=== PATIENT | male | born 1940 | race American Indian/Alaskan Native ===

== ENCOUNTER 2022-05-29 23:54 | Emergency (ER) | payer OTHER ==
--- NOTE | 2022-05-30 01:04 | Emergency Department Report ---
ED General Adult HPI - General Chief complaint: Urogenital-Male Stated complaint: URINARY RETENTION PUI?: No Time Seen by Provider: 05/30/22 00:18 Source: EMS Mode of arrival: Stretcher Limitations: No Limitations - History of Present Illness Initial comments: 81-year-old male brought in by EMS with concerns of urinary retention. According to patient he is Sparks catheter was placed around today at 1:00. Ever since then patient denies any fluid coming out the Sparks catheter. Patient endorsed suprapubic discomfort. Patient denies any other symptoms. Patient denies fever chill night sweat dizziness blurred vision lightheadedness headache tinnitus ear pain runny nose sore throat loss of taste loss smell chest pain palpitation short breath cough abdominal pain nausea vomiting diarrhea constipation joint pain muscle pain new rash and heat or cold intolerance - Related Data Previous Rx's Medication Instructions Recorded Last Taken Type Ciprofloxacin HCl 500 mg PO Q12H 10 Days #20 05/30/22 Unknown Rx Allergies Allergy/AdvReac Type Severity Reaction Status Date / Time No Known Allergies Allergy Verified 05/09/19 16:03 ED Review of Systems ROS: Stated complaint: URINARY RETENTION Other details as noted in HPI Comment: All other systems reviewed and negative Constitutional: no symptoms reported, see HPI Eyes: as per HPI ENT: as per HPI Respiratory: no symptoms reported, see HPI Cardiovascular: as per HPI Endocrine: no symptoms reported, see HPI Gastrointestinal: as per HPI Genitourinary: as per HPI Musculoskeletal: as per HPI Skin: as per HPI Neurological: as per HPI Psychiatric: as per HPI Hematological/Lymphatic: as per HPI ED Past Medical Hx - Past Medical History Previous Medical History?: Yes Hx Hypertension: Yes (Controlled) Hx Diabetes: Yes (PO MEDS, NO INSULIN) - Surgical History Past Surgical History?: No - Social History Smoking Status: Never Smoker Substance Use Type: None - Medications Home Medications: Home Medications Medication Instructions Recorded Confirmed Last Taken Type Ciprofloxacin HCl 500 mg PO Q12H 10 Days #20 05/30/22 Unknown Rx ED Physical Exam - General Limitations: No Limitations General appearance: alert, in no apparent distress - Head Head exam: Present: atraumatic, normocephalic, normal inspection - Eye Eye exam: Present: normal appearance, PERRL, EOMI Pupils: Present: normal accommodation - ENT ENT exam: Present: normal exam, mucous membranes moist - Neck Neck exam: Present: normal inspection, full ROM - Respiratory Respiratory exam: Present: normal lung sounds bilaterally - Cardiovascular Cardiovascular Exam: Present: regular rate, normal rhythm, normal heart sounds - GI/Abdominal GI/Abdominal exam: Present: soft - exam: Present: other (SPARKS IN PLACE) - Extremities Exam Extremities exam: Present: normal inspection, full ROM, normal capillary refill - Back Exam Back exam: Present: normal inspection, full ROM - Neurological Exam Neurological exam: Present: alert, oriented X3, CN II-XII intact - Psychiatric Psychiatric exam: Present: normal affect, normal mood - Skin Skin exam: Present: warm, normal color ED Course Vital Signs 05/30/22 00:05 Temperature 98.2 F Pulse Rate 100 H Respiratory 18 Rate Blood Pressure 128/74 O2 Sat by Pulse 95 Oximetry - Reevaluation(s) Reevaluation #1: 05/30/22 01:10 BEDSIDE BLADDER SCAN BY RN +[phone]; INFORMED TO CHANGE SPARKS 05/30/22 02:22 PER NURSE, SIGNIFICANT URINE OUTPUT; PATIENT HAVE UTI. WILL GIVE CEFTRIAXONE AND D/C ON CIPRO. INFORMED TO FOLLOW UP WITH PCP WITHIN 3 DAYS. Critical care attestation.: If time is entered above; I have spent that time in minutes in the direct care of this critically ill patient, excluding procedure time. ED Disposition Clinical Impression: UTI (urinary tract infection) due to urinary indwelling Sparks catheter, Co mplication, blocked Sparks catheter, Gross hematuria Disposition: HOME / SELF CARE / HOMELESS Is pt being admited?: No Does the pt Need Aspirin: No Condition: Stable Instructions: Urinary Tract Infection, Adult Additional Instructions: TAKE ANTIBIOTICS THAT'S PRESCRIBED FOR YOUR URINARY TRACT INFECTION (CIPROFLOXACIN 500MG EVERY 12 HOURS FOR 10 DAYS) AND MAKE A FOLLOW UP APPOINTMENT WITH YOUR PRIMARY CARE PROVIDER TO BE SEEN WITHIN 3 DAYS. Prescriptions: Ciprofloxacin HCl 500 mg PO Q12H 10 Days #20 Time of Disposition: 02:20
[2022-05-30] MEDS ORDERED: LACTATED RINGERS 1000 ML IV SOLN IV SCH (01:15)
[2022-05-30] MEDS ORDERED: SODIUM CHLORIDE 0.9% 1000 ML 3,000 ML IV ONE (01:32)
[2022-05-30] MEDS ORDERED: SODIUM CHLORIDE 0.9% 1000 ML 3,000 ML IR ONE (01:35)
[2022-05-30 01:59] LABS: Color,Urine Brown (Yellow)
[2022-05-30 02:02] LABS: Bacteria,Urine 2+ /HPF (Negative); Mucus,Urine 2+ /HPF
[2022-05-30 02:03] LABS: RBC,Urine > 182.0 /HPF (0.0-6.0); WBC,Urine > 182.0 /HPF (0.0-6.0)
[2022-05-30] MEDS ORDERED: LIDOCAINE-MPF (1%) 10 MG/1 ML VIAL 5 ML INFILTRATI ONE (02:12)
[2022-05-30 02:58] VITALS: BP 139/74
== END 2022-05-30 02:52 | disposition home or self-care (01) ==
LOC: ED 23:54
DX: T83.511A Infection and inflammatory reaction due to indwelling urethral catheter, initial encounter (principal); T83.098A Other mechanical complication of other urinary catheter, initial encounter; R31.0 Gross hematuria; I10 Essential (primary) hypertension; E11.9 Type 2 diabetes mellitus without complications
CPT/HCPCS: 51702; 51798; 81001; 96372; 99283; J0696; J3490; 99284

== ENCOUNTER 2022-06-06 12:16 | Emergency (ER) | payer OTHER ==
[2022-06-06 13:54] VITALS: BP 154/77
--- NOTE | 2022-06-06 14:00 | Emergency Department Report ---
ED General Adult HPI - General Chief complaint: Urogenital-Male Stated complaint: CATHETER REMOVED PUI?: No Time Seen by Provider: 06/06/22 13:57 Source: patient Mode of arrival: Ambulatory Limitations: Physical Limitation - History of Present Illness Initial comments: 81 YO COMES TO ER TODAY IN FOLLOW UP FROM PRIOR ER VISIT HE UNDERSTOOD IT HE WAS TO COME TO ER; NOT PCP OR UROLOGY HE HAS A/C SPARKS WHICH RESULTED IN UTI DURING HIS LAST ENCOUNTER HE HAS NO NEW SYMPTOMS AND HAS BEEN COMPLAINT WITH HIS CIPRO AMBULTORY AND NON ILL APPEARING ON EXAM Severity scale (0 -10): 0 Improves with: none Associated Symptoms: denies other symptoms Treatments Prior to Arrival: none - Related Data Previous Rx's Medication Instructions Recorded Last Taken Type Ciprofloxacin HCl 500 mg PO Q12H 10 Days #20 05/30/22 Unknown Rx Allergies Allergy/AdvReac Type Severity Reaction Status Date / Time No Known Allergies Allergy Verified 06/06/22 13:54 ED Review of Systems ROS: Stated complaint: CATHETER REMOVED Other details as noted in HPI Comment: All other systems reviewed and negative ED Past Medical Hx - Past Medical History Previous Medical History?: Yes Hx Hypertension: Yes (Controlled) Hx Diabetes: Yes (PO MEDS, NO INSULIN) - Surgical History Past Surgical History?: Yes - Family History Family history: no significant - Social History Smoking Status: Never Smoker Substance Use Type: None - Medications Home Medications: Home Medications Medication Instructions Recorded Confirmed Last Taken Type Ciprofloxacin HCl 500 mg PO Q12H 10 Days #20 05/30/22 Unknown Rx ED Physical Exam - General Limitations: No Limitations, Physical Limitation General appearance: alert, in no apparent distress - Head Head exam: Present: atraumatic, normocephalic - Eye Eye exam: Present: normal appearance - ENT ENT exam: Present: mucous membranes moist - Neck Neck exam: Present: normal inspection - Respiratory Respiratory exam: Present: normal lung sounds bilaterally. Absent: respiratory distress - Cardiovascular Cardiovascular Exam: Present: regular rate, normal rhythm. Absent: systolic murmur, diastolic murmur, rubs, gallop - GI/Abdominal GI/Abdominal exam: Present: soft, normal bowel sounds - Rectal Rectal exam: Present: deferred - Extremities Exam Extremities exam: Present: normal inspection - Back Exam Back exam: Present: normal inspection - Neurological Exam Neurological exam: Present: alert, oriented X3 - Psychiatric Psychiatric exam: Present: normal affect, normal mood - Skin Skin exam: Present: warm, dry, intact, normal color. Absent: rash ED Course Vital Signs 06/06/22 06/06/22 13:49 13:53 Temperature 97.6 F Pulse Rate 64 Respiratory 16 Rate Blood Pressure 154/77 O2 Sat by Pulse 99 99 Oximetry ED Medical Decision Making - Medical Decision Making Vital Signs (72 hours) 06/06/22 13:49 Temperature 97.6 F Pulse Rate 64 Respiratory 16 Rate Blood Pressure 154/77 O2 Sat by Pulse 99 Oximetry VSS NORMAL PT EDUCATED ON FOLLOW UP WITH UROLOGY GIVEN HIS CATH/UTI AND ? PROSTATE HEALTH HE HAS NO NEW SYMPTOMS NO FEVER NO CONCERN FOR SEPSIS DC HOME WITH APPROPRIATE FOLLOW UP INSTRUCTIONS. HE VERBALIZES UNDERSTANDING - Differential Diagnosis SP UTI/SPARKS Critical care attestation.: If time is entered above; I have spent that time in minutes in the direct care of this critically ill patient, excluding procedure time. ED Disposition Clinical Impression: UTI (urinary tract infection) due to urinary indwelling Sparks catheter Disposition: HOME / SELF CARE / HOMELESS Is pt being admited?: No Does the pt Need Aspirin: No Condition: Stable Instructions: Urinary Tract Infection, Adult Additional Instructions: CONTINUE ANTIBIOTIC UNTIL GONE STAY WELL HYDRATED WITH WATER FOLLOW UP WITH DR CARR- UROLOGY REFERRAL BELOW TELL HIM YOU WERE IN ER AND HAD SPARKS CHANGED YOU WERE TREATED FOR UTI AND NEED FOLLOW UP Referrals: RUBY CARR MD [Staff Physician] - 3-5 Days Time of Disposition: 14:03
== END 2022-06-06 14:38 | disposition home or self-care (01) ==
LOC: ED 12:16
DX: T83.511A Infection and inflammatory reaction due to indwelling urethral catheter, initial encounter (principal); N39.0 Urinary tract infection, site not specified; I10 Essential (primary) hypertension; E11.9 Type 2 diabetes mellitus without complications; Z79.899 Other long term (current) drug therapy; Y84.6 Urinary catheterization as the cause of abnormal reaction of the patient, or of later complication, without mention of misadventure at the time of the procedure; Y92.89 Other specified places as the place of occurrence of the external cause
CPT/HCPCS: 99282